=== PATIENT | female | born 1945 ===

== ENCOUNTER 2025-01-14 15:07 | Outpatient (REF) | payer MEDICARE, SELFPAY | END 2025-01-14 15:08 | disposition home or self-care (01) | LOC: NCHCN 15:07 | PROVIDERS: Visit Provider Family Medicine | DX: R30.0 Dysuria (principal); B96.1 Klebsiella pneumoniae [K. pneumoniae] as the cause of diseases classified elsewhere | CPT/HCPCS: 87077; 87086; 87186 ==

== ENCOUNTER 2025-02-06 12:09 | Outpatient (REF) | payer MEDICARE, SELFPAY ==
[2025-02-06 15:31] LABS: Abs Immature Grans 0.02 10^3/uL (0.0-0.06); Absolute Basophil Count 0.03 10^3/uL (0.0-0.2); Absolute Eosinophil Count 0.18 10^3/uL (0.0-0.7); Absolute Lymphocyte Count 1.02 10^3/uL (1.2-3.4); Absolute Neutrophil Count 3.22 10^3/uL (1.2-6.7); Basophils % 0.6 %; Eosinophils % 3.7 %; HCT 36.3 % (36.0-46.0); Immature Grans % 0.4 %; Lymphocytes % 20.9 %; MCH 31.3 pg (27.0-33.0); MCHC 33.1 % (32.0-36.0); MCV 95 fL (80-95); MPV 10.5 fL (8.0-11.0); Monocytes % 8.2 %; Neutrophils % 66.2 %; Platelet Count 283 10^3/uL (130-400); RBC 3.83 10^6/uL (3.93-5.22); RDW 12.8 % (11.7-14.6); RDW-SD 44.3 fL; WBC 4.87 10^3/uL (4.4-10.8)
[2025-02-06 16:49] LABS: ALT 27 U/L (14-59); AST 27 U/L (15-37); Albumin 3.5 g/dL (3.4-5.0); Alkaline Phosphatase 67 U/L (46-116); Anion Gap 5.6 mmol/L (3-11); BUN 14 mg/dL (7-18); Bilirubin, Total 0.3 mg/dL (0.2-1.0); CO2 31.4 mmol/L (21.0-32.0); CREATININE 0.9 mg/dL (0.55-1.02); Chloride 106 mmol/L (98-107); Estimated GFR 63.83 (mL/min/1.73m2); Glucose 82 mg/dL (74-106); Potassium 4.1 mmol/L (3.5-5.1); Sodium 143 mmol/L (136-145); TSH (W/Ref FT4) 1.67 uIU/mL (0.36-3.74); Total Protein 6.9 g/dL (6.4-8.2)
== END 2025-02-06 12:10 | disposition home or self-care (01) ==
LOC: NCHCN 12:09
PROVIDERS: Visit Provider Family Medicine
DX: R41.0 Disorientation, unspecified (principal)
CPT/HCPCS: 80053; 84443; 85025